=== PATIENT | male | born 1960 | race Caucasian/White ===

== ENCOUNTER 2018-02-25 19:57 | Emergency (ER) | payer MEDICAID ==
[~2018-02-25] VITALS: Ht 182.9 cm; Wt 68.0 kg
[~2018-02-25 19:57] MED LIST: DIPH25TA PO; LANTUS SQ
[2018-02-25] MEDS ORDERED: metoclopramide 5 mg/ml inj IV ONE (20:10)
[2018-02-25] MEDS ORDERED: diphenhydrAMINE 50 mg/ml inj IV ONE (20:10)
[2018-02-25] MEDS ORDERED: normal saline 1000ML IV soln IVB ONE (20:10)
[2018-02-25 20:23] LABS: BASOPHILS % (AUTO) 0.3 % (0-1); EOSINOPHILS # (AUTO) 0.1 X10'3 (0-0.9); EOSINOPHILS % (AUTO) 0.9 % (0-6); HEMATOCRIT 36.5 % (42.0-52.0); HEMOGLOBIN 12.4 g/dl (14.0-17.9); LYMPHOCYTES # (AUTO) 0.9 X10'3 (1.1-4.8); LYMPHOCYTES % (AUTO) 8.1 % (21-51); MEAN CORPUSCULAR HEMOGLOBIN 30.4 PG (27.0-31.0); MEAN CORPUSCULAR HGB CONC 34.1 % (33.0-36.5); MEAN PLATELET VOLUME 8.4 FL (7.4-10.4); MONOCYTES # (AUTO) 0.6 X10'3 (0-0.9); MONOCYTES % (AUTO) 5.8 % (2-12); NEUTROPHILS # (AUTO) 9.1 X10'3 (1.8-7.7); NEUTROPHILS % (AUTO) 84.9 % (42-75); PLATELET COUNT 167 X10'3 (140-440); RED CELL DISTRIBUTION WIDTH 13.1 % (11.5-14.5); WHITE BLOOD COUNT 10.7 X10'3 (4.5-11.0)
[2018-02-25 20:37] LABS: ALANINE AMINOTRANSFERASE 26 U/L (12-78); ALBUMIN 3.1 G/DL (3.4-5.0); ALKALINE PHOSPHATASE 54 IU/L (46-116); ANION GAP 18 (8-16); ASPARTATE AMINO TRANSFERASE 11 U/L (10-37); BILIRUBIN,TOTAL 1.3 MG/DL (0.1-1.0); BLOOD UREA NITROGEN 12 MG/DL (7-18); BUN/CREATININE RATIO 14.8 (5.4-32.0); CALCIUM 7.2 MG/DL (8.5-10.1); CHLORIDE 97 MMOL/L (99-107); CREATININE 0.81 MG/DL (0.60-1.10); GLUCOSE 208 MG/DL (70-104); LIPASE 75 U/L (73-393); POTASSIUM 3.6 MMOL/L (3.5-5.1); SODIUM 126 MMOL/L (135-145); TOTAL PROTEIN 6.2 G/DL (6.4-8.2); eGFR > 90 ML/MIN
[2018-02-25 20:39] LABS: TOTAL CARBON DIOXIDE 11.3 MMOL/L (24-32)
[2018-02-25] MEDS ORDERED: haloperidol lactate 5mg/ml inj IM ONE (21:50)
[2018-02-25] MEDS ORDERED: morphine 4 MG/ML inj SYRINge IV ONE (21:50)
[2018-02-25] MEDS ORDERED: METO-292 PO (22:49)
[2018-02-25 23:58] VITALS: BP 122/75
== END 2018-02-26 00:01 | disposition home or self-care (01) ==
LOC: ER 19:57
DX: E11.43 Type 2 diabetes mellitus with diabetic autonomic (poly)neuropathy (principal); K31.84 Gastroparesis; R11.2 Nausea with vomiting, unspecified; R10.84 Generalized abdominal pain; F12.90 Cannabis use, unspecified, uncomplicated; Z88.5 Allergy status to narcotic agent; Z79.4 Long term (current) use of insulin
CPT/HCPCS: 36415; 80053; 83690; 85025; 93005; 96361; 96372; 96374; 96375; 99285; J1200; J1630; J2270; J2765; J7030

== ENCOUNTER → 2018-05-09 | Day surgery (SDC) | payer MEDICAID ==
[~2018-05-09] MED LIST changes: +METO-292 PO
== END | disposition home or self-care (01) ==
LOC: RAD 09:15
PROVIDERS: ATTEND Nurse Practitioner Adult Health
DX: R11.0 Nausea (principal); R10.84 Generalized abdominal pain; R14.0 Abdominal distension (gaseous); E11.9 Type 2 diabetes mellitus without complications; F19.11 Other psychoactive substance abuse, in remission; Z87.09 Personal history of other diseases of the respiratory system; Z87.19 Personal history of other diseases of the digestive system; Z86.59 Personal history of other mental and behavioral disorders; Z79.4 Long term (current) use of insulin; Z79.899 Other long term (current) drug therapy; Z88.8 Allergy status to other drugs, medicaments and biological substances; Z82.3 Family history of stroke; Z82.49 Family history of ischemic heart disease and other diseases of the circulatory system; Z83.6 Family history of other diseases of the respiratory system; Z83.3 Family history of diabetes mellitus
CPT/HCPCS: 78264; 82948; A9541

== ENCOUNTER 2023-02-14 07:25 | Inpatient (IN) | payer MEDICAID ==
[2023-02-14] VITALS (17 sets, daily range): BP systolic 98–122; BP diastolic 42–58; PULSE 82–109; RESP 18–27; O2SAT 88–99
[~2023-02-14] VITALS: Ht 182.9 cm; Wt 75.7 kg
[2023-02-14] MEDS ORDERED: normal saline 1000ML IV soln IVB ONE ×2 (07:35→08:30)
[2023-02-14] MEDS ORDERED: ondansetron/PF 4mg/2ml inj IV ONE (07:35)
[2023-02-14] MEDS ORDERED: pantoprazole 40 MG vial IV ONE (07:35)
[2023-02-14] MEDS ORDERED: pantoprazole 40MG/NS 100ML BAG 100 ML IV ONE (07:40)
[2023-02-14] MEDS ORDERED: heparin, porcine-25,000 units/D5-250ml premix IV ONE (08:00)
[2023-02-14 08:03] LABS: EOSINOPHILS % (AUTO) 0 % (0-6); HEMATOCRIT 49.4 % (42.0-52.0); MEAN PLATELET VOLUME 7.8 FL (7.4-10.4); MONOCYTES # (AUTO) 1.8 X10'3 (0-0.9)
[2023-02-14 08:17] LABS: BASOPHILS % (AUTO) 0.2 % (0-1); HEMOGLOBIN 15.8 g/dl (14.0-17.9); LYMPHOCYTES # (AUTO) 0.5 X10'3 (1.1-4.8); LYMPHOCYTES % (AUTO) 2.3 % (21-51); MEAN CORPUSCULAR HEMOGLOBIN 29.9 PG (27.0-31.0); MEAN CORPUSCULAR VOLUME 93.5 FL (78-98); MONOCYTES % (AUTO) 7.9 % (2-12); NEUTROPHILS # (AUTO) 20.1 X10'3 (1.8-7.7); NEUTROPHILS % (AUTO) 89.6 % (42-75); PLATELET COUNT 303 X10'3 (140-440); RED BLOOD COUNT 5.28 X10'6 (4.70-6.10); RED CELL DISTRIBUTION WIDTH 13.8 % (11.5-14.5); WHITE BLOOD COUNT 22.4 X10'3 (4.5-11.0)
[2023-02-14 08:19] LABS: ABG BASE EXCESS -27.8 mmol/L (-2.0-2.0); ABG HCO3 3.2 mmol/L (22.0-26.0); ABG PCO2 (T) 15.4 mmHg (35.0-48.0); ABG PH (T) 6.935 (7.340-7.440); ALLEN'S TEST POSITIVE; TOTAL HEMOGLOBIN 15.5 G/dl (14.0-17.9)
[2023-02-14 08:20] LABS: ABG OXYGEN SATURATION 96.2 % (94-97); FCOHb 0.1 % (0.0-3.9); FHHb 3.8 % (0.0-5.0); FMetHb 0.3 % (0.0-1.5); FO2Hb 95.8 % (94-97)
[2023-02-14 08:34] LABS: LACTIC SEPSIS 4.7 MMOL/L (0.4-2.0)
[2023-02-14] MEDS ORDERED: morphine 4 MG/ML inj SYRINge IV PRN (08:40)
[2023-02-14] MEDS ORDERED: morphine 2 MG/ML inj. syringe IV PRN (08:40)
[2023-02-14] MEDS ORDERED: magnesium hydroxide 30ml (MOM) UD suspension PO PRN (08:40)
[2023-02-14] MEDS ORDERED: acetaminophen 325mg tablet PO PRN ×2 (08:40)
[2023-02-14] MEDS ORDERED: LidoCAINE 2% Topical Jelly 11mL syringe TOP ONE (08:40)
[2023-02-14] MEDS ORDERED: ondansetron/PF 4mg/2ml inj IV PRN (08:40)
[2023-02-14] MEDS ORDERED: ringers solution, lacted 1,000 ML IV ONE ×3 (08:45)
[2023-02-14] MEDS: Insulin Reg/NS 100units/100mL 100 ML IV PRN ×2 (08:47→19:22)
[2023-02-14] MEDS ORDERED: enoxaparin 30mg/0.3ml syringe SUBCUT ONE (08:50)
[2023-02-14 09:06] LABS: ALANINE AMINOTRANSFERASE 29 U/L (12-78); ALBUMIN 2.3 G/DL (3.4-5.0); ALBUMIN/GLOBULIN RATIO 0.5 (1.1-1.5); ALKALINE PHOSPHATASE 66 IU/L (46-116); ASPARTATE AMINO TRANSFERASE 30 U/L (10-37); BILIRUBIN,TOTAL 0.5 MG/DL (0.1-1.0); BLOOD UREA NITROGEN 30 MG/DL (7-18); BUN/CREATININE RATIO 15.5 (10.0-20.0); CALCIUM 8.8 MG/DL (8.5-10.1); CHLORIDE 89 MMOL/L (99-107); CREATININE 1.93 MG/DL (0.60-1.10); POTASSIUM 4.1 MMOL/L (3.5-5.1); SODIUM 124 MMOL/L (135-145); TOTAL PROTEIN 6.5 G/DL (6.4-8.2); eCRCL 38 ML/MIN; eGFR 35 ML/MIN
[2023-02-14 09:28] LABS: ANION GAP 30 (8-16); LIPASE 111 U/L (16-77)
[2023-02-14 09:30] LABS: GLUCOSE 618 MG/DL (70-104)
[2023-02-14 09:31] LABS: TOTAL CARBON DIOXIDE < 5 MMOL/L (24-32)
[2023-02-14 09:49] LABS: BILIRUBIN,URINE NEGATIVE (Neg); CLARITY,URINE SLIGHTLY CLOUDY (Clear); COLOR,URINE YELLOW (Yellow); GLUCOSE, URINE >=1000 mg/dl (Neg); KETONES,URINE >=80 mg/dl (Neg); LEUKOCYTE ESTERASE ,URINE NEGATIVE (Neg); NITRITES, URINE NEGATIVE (Neg); OCCULT BLOOD,URINE MODERATE (Neg); PH,URINE 5.5 (4.8-8.0); PROTEIN,URINE 30 mg/dl (Neg); UROBILINOGEN,URINE 0.2 E.U/dL (0.2-1.0)
[2023-02-14 09:54] LABS: UA COLLECTION TYPE STRAIGHT CATH
[2023-02-14 09:55] LABS: SQUAMOUS EPITHELIAL CELL,UR FEW /LPF (FEW)
[2023-02-14 09:56] LABS: MUCUS STRANDS FEW /LPF (Neg); TRANSITIONAL EPI CELLS,URINE FEW /HPF
[2023-02-14 09:57] LABS: RBC,URINE 0-2 /HPF (0-2); WBC,URINE 0-4 /HPF (0-4)
[2023-02-14 09:58] LABS: ACETONE LARGE (NEGATIVE)
[2023-02-14 09:59] LABS: AMORPHOUS URATES 1+; BACTERIA,URINE NONE SEEN /HPF (Neg)
[2023-02-14] MEDS ORDERED: sodium bicarbonate (8.4%) inj. 100 MEQ in dextrose 5% water 500ml 500 ML IV PRN (10:10)
[2023-02-14] MEDS ORDERED: sodium bicarbonate (8.4%) inj. 50 MEQ in dextrose 5% water 500ml 250 ML IV PRN (10:10)
[2023-02-14] MEDS: normal saline 1000ml 1,000 ML IV SCH ×4 (10:10→22:10)
[2023-02-14] MEDS ORDERED: magnesium 4gm in 100ml NS 100 ML IV PRN (10:20)
[2023-02-14] MEDS ORDERED: magnesium Cl slow-release 64mg tablet PO PRN (10:20)
[2023-02-14] MEDS ORDERED: magnesium 2GM in 50ml NS 50 ML IV PRN (10:20)
[2023-02-14] MEDS ORDERED: potassium Cl 20 mEq SR tablet PO PRN ×2 (10:20)
[2023-02-14] MEDS ORDERED: potassium Cl 40MEQ/1/2NS 520ml 520 ML IV PRN (10:20)
[2023-02-14 10:23] LABS: URINE AMPHETAMINE SCREEN NEGATIVE (Neg); URINE BARBITUATE SCREEN NEGATIVE (Neg); URINE BENZODIAZEPINES SCREEN NEGATIVE (Neg); URINE CANNABINOID SCREEN POSITIVE (Neg); URINE COCAINE SCREEN NEGATIVE (Neg); URINE OPIATE SCREEN NEGATIVE (Neg); URINE PHENCYCLIDINE SCREEN NEGATIVE (Neg)
[2023-02-14] MEDS ORDERED: potassium Cl 40MEQ/1/2NS 520ml 520 ML IV ONE (11:20)
[2023-02-14] MEDS ORDERED: KEN0.1O TOP (11:22)
[2023-02-14] MEDS ORDERED: CHOL100025 PO (11:22)
[2023-02-14] MEDS ORDERED: FLUT16SP26 BOTHNARES (11:22)
[2023-02-14] MEDS ORDERED: FEXO-236 PO (11:22)
[2023-02-14] MEDS: famotidine/PF 10 mg/ml inj IV SCH ×2 (11:25→20:16)
[2023-02-14] MEDS ORDERED: INSU100V9 SQ (11:28)
[2023-02-14] MEDS ORDERED: INSU100V49 SQ (11:29)
--- NOTE | 2023-02-14 13:13 | NUR ---
Initial: Pt presents with a BG of 618mg/dl on admit per EMR. Pt's family at bedside during time of visit, states pt's height is actually 6 ft noted discrepancy in EMR of 6ft vs 6'2. Pt currently receiving insulin drip and NPO. NO BM yet this admit. Pt may benefit from A1c lab this admit prior to providing diabetes nutrition education if appropriate. Will continue to monitor and make recommendations as appropriate. Recommendations: 1.Advance diet as medically appropriate to carbohydrate controlled 2.routine bowel care 3.scaled wt this admit; subsequent weekly scaled wts 4. obtain A1c lab if MD agreeable;monitor appropriateness for DM education prior to discharge Addendum: 02/14/23 at [address] Amended: Links added.
[2023-02-14 14:18] LABS: ALANINE AMINOTRANSFERASE 30 U/L (12-78); ALBUMIN 1.9 G/DL (3.4-5.0); ALBUMIN/GLOBULIN RATIO 0.5 (1.1-1.5); ALKALINE PHOSPHATASE 51 IU/L (46-116); ANION GAP 19 (8-16); ASPARTATE AMINO TRANSFERASE 38 U/L (10-37); BILIRUBIN,TOTAL 0.5 MG/DL (0.1-1.0); BLOOD UREA NITROGEN 26 MG/DL (7-18); BUN/CREATININE RATIO 17.9 (10.0-20.0); CALCIUM 7.9 MG/DL (8.5-10.1); CHLORIDE 102 MMOL/L (99-107); CREATININE 1.45 MG/DL (0.60-1.10); GLUCOSE 284 MG/DL (70-104); POTASSIUM 3.3 MMOL/L (3.5-5.1); SODIUM 132 MMOL/L (135-145); TOTAL PROTEIN 5.4 G/DL (6.4-8.2); eCRCL 51 ML/MIN; eGFR 49 ML/MIN
[2023-02-14 14:25] LABS: PHOSPHORUS 0.7 MG/DL (2.3-4.5); TOTAL CARBON DIOXIDE 10.8 MMOL/L (24-32)
[2023-02-14] MEDS ORDERED: Neutra Phos packet PO PRN (14:45)
[2023-02-14] MEDS ORDERED: sodium phosphate inj. 15 MMOL in dextrose 5%-water 250 ML IV PRN (14:45)
[2023-02-14] MEDS: potassium CL 20mEq in D5-1/2NS 1,000 ML IV PRN (15:08)
[2023-02-14] MEDS: sodium phosphate inj. 30 MMOL in dextrose 5%-water 250 ML IV PRN (15:08)
--- NOTE | 2023-02-14 18:29 | NUR ---
Problems reprioritized. Patient report given, questions answered & plan of care reviewed with JD Stallings.
[2023-02-14] MEDS: K and/or MAG REPLACEMENT MC SCH (20:00)
[2023-02-14] MEDS ORDERED: famotidine/PF 10 mg/ml inj IV ONE (20:00)
[2023-02-14 20:23] LABS: ALBUMIN 1.7 G/DL (3.4-5.0); ANION GAP 14 (8-16); BLOOD UREA NITROGEN 24 MG/DL (7-18); BUN/CREATININE RATIO 15.3 (10.0-20.0); CALCIUM 7.8 MG/DL (8.5-10.1); CHLORIDE 105 MMOL/L (99-107); CREATININE 1.57 MG/DL (0.60-1.10); GLUCOSE 223 MG/DL (70-104); SODIUM 133 MMOL/L (135-145); eCRCL 47 ML/MIN; eGFR 45 ML/MIN
[2023-02-14 20:28] LABS: POTASSIUM 2.6 MMOL/L (3.5-5.1); TOTAL CARBON DIOXIDE 13.7 MMOL/L (24-32)
[2023-02-14] MEDS: potassium Cl 40MEQ/1/2NS 520ml 520 ML IV PRN (21:01)
[2023-02-15] VITALS (27 sets, daily range): BP systolic 106–140; BP diastolic 42–68; PULSE 107–123; RESP 16–32; O2SAT 87–95
[2023-02-15] MEDS: normal saline 1000ml 1,000 ML IV SCH (02:10)
[2023-02-15 03:08] LABS: ALBUMIN 1.7 G/DL (3.4-5.0); ANION GAP 11 (8-16); BLOOD UREA NITROGEN 20 MG/DL (7-18); BUN/CREATININE RATIO 13.6 (10.0-20.0); CALCIUM 7.9 MG/DL (8.5-10.1); CHLORIDE 109 MMOL/L (99-107); CREATININE 1.47 MG/DL (0.60-1.10); GLUCOSE 129 MG/DL (70-104); MAGNESIUM 1.6 MG/DL (1.5-2.4); SODIUM 136 MMOL/L (135-145); TOTAL CARBON DIOXIDE 15.9 MMOL/L (24-32); eCRCL 50 ML/MIN; eGFR 48 ML/MIN
[2023-02-15 03:17] LABS: POTASSIUM 2.9 MMOL/L (3.5-5.1)
[2023-02-15 03:18] LABS: PHOSPHORUS 0.4 MG/DL (2.3-4.5)
[2023-02-15 03:35] LABS: BASOPHILS % (AUTO) 0.1 % (0-1); EOSINOPHILS % (AUTO) 0 % (0-6); HEMATOCRIT 33.9 % (42.0-52.0); HEMOGLOBIN 11.8 g/dl (14.0-17.9); LYMPHOCYTES # (AUTO) 0.2 X10'3 (1.1-4.8); LYMPHOCYTES % (AUTO) 1.5 % (21-51); MEAN CORPUSCULAR HEMOGLOBIN 29.9 PG (27.0-31.0); MEAN CORPUSCULAR HGB CONC 34.7 g/dL (33.0-36.5); MEAN CORPUSCULAR VOLUME 86.1 FL (78-98); MEAN PLATELET VOLUME 7.4 FL (7.4-10.4); MONOCYTES # (AUTO) 0.6 X10'3 (0-0.9); MONOCYTES % (AUTO) 3.9 % (2-12); NEUTROPHILS # (AUTO) 14.2 X10'3 (1.8-7.7); NEUTROPHILS % (AUTO) 94.5 % (42-75); PLATELET COUNT 187 X10'3 (140-440); RED BLOOD COUNT 3.94 X10'6 (4.70-6.10); RED CELL DISTRIBUTION WIDTH 12.8 % (11.5-14.5)
[2023-02-15] MEDS ORDERED: sodium phosphate inj. 30 MMOL in normal saline 250ml IV soln 250 ML IV ONE (04:00)
[2023-02-15 04:34] LABS: TOTAL CELLS COUNTED 100
[2023-02-15 04:35] LABS: ANISOCYTOSIS 1+; BURR CELLS 2+; ELLIPTOCYTES FEW; PLATELET ESTIMATE NORMAL
[2023-02-15 04:37] LABS: TEAR DROP CELLS FEW
[2023-02-15] MEDS: potassium CL 20mEq in D5-1/2NS 1,000 ML IV PRN ×4 (04:54→19:32)
[2023-02-15] MEDS: Insulin Reg/NS 100units/100mL 100 ML IV PRN (06:07)
[2023-02-15] MEDS ORDERED: ringers solution, lacted 1,000 ML IV ONE ×2 (07:40)
[2023-02-15] MEDS: K and/or MAG REPLACEMENT MC SCH ×2 (08:00→20:00)
[2023-02-15] MEDS: famotidine/PF 10 mg/ml inj IV SCH ×2 (09:32→21:23)
[2023-02-15 10:29] LABS: ALBUMIN 1.8 G/DL (3.4-5.0); ANION GAP 13 (8-16); BLOOD UREA NITROGEN 17 MG/DL (7-18); BUN/CREATININE RATIO 11.3 (10.0-20.0); CHLORIDE 109 MMOL/L (99-107); CREATININE 1.51 MG/DL (0.60-1.10); GLUCOSE 164 MG/DL (70-104); SODIUM 135 MMOL/L (135-145); eCRCL 49 ML/MIN; eGFR 47 ML/MIN
[2023-02-15 10:37] LABS: POTASSIUM 2.9 MMOL/L (3.5-5.1); TOTAL CARBON DIOXIDE 13.1 MMOL/L (24-32)
--- NOTE | 2023-02-15 10:45 | NUR ---
low MD patricia aware. cxray ordered. also notified of critical lab values. K = 2.9 and ECO2 = 13.1. Notified Dr. Finney.
--- NOTE | 2023-02-15 11:32 | NUR ---
F/u: D/w physician recommendation for an A1c, physician approved, lab pending at this time. Per RN pt is very altered and not following commands. RN states she received in report that patient's usually helps patient with diabetes management however she has been unable to help recently d/t the family getting sick. Will continue to follow. Addendum: 02/15/23 at [address] Amended: Links added.
[2023-02-15] MEDS ORDERED: levoFLOXACIN 500mg tablet PO SCH (11:39)
[2023-02-15] MEDS ORDERED: potassium Cl 20mEq/100mL bag 100 ML IV PRN (11:50)
[2023-02-15] MEDS ORDERED: heparin, porcine 5000 units/ml vial SQ SCH (12:20)
[2023-02-15] MEDS: potassium Cl 40MEQ/1/2NS 520ml 520 ML IV PRN ×2 (12:48→17:07)
[2023-02-15 12:56] LABS: HEMOGLOBIN A1C 8.1 % (4.5-6.2)
--- NOTE | 2023-02-15 14:35 | NUR ---
COVID positive. will call MD to notify
[2023-02-15] MEDS ORDERED: furosemide 40mg/4ml inj IV ONE (14:50)
--- NOTE | 2023-02-15 14:54 | NUR ---
notified MD of covid positive results, decreased O2 sats, inability to swallow and tachycardia. new orders obtained. will move patient to isolation room.
[2023-02-15] MEDS: levoFLOXACIN-Levaquin 500mg/D5 100 ML IV SCH (15:37)
--- NOTE | 2023-02-15 15:47 | NUR ---
Patient has sats 87-90%. will talk with MD regarding this. Levaquin and Lasix given without scanning as I was in covid isolation room and the [employer] computer is not working. double checked meds with 2nd RN.
[2023-02-15] MEDS: enoxaparin 40mg/0.4ml syringe SUBCUT SCH (21:23)
[2023-02-15] MEDS: methylPREDNISolone sod succ/PF 40mg inj. IV SCH (21:23)
[2023-02-16] VITALS (27 sets, daily range): BP systolic 78–141; BP diastolic 45–74; PULSE 77–129; RESP 15–27; TEMP 98.5–98.6; O2SAT 87–97
[2023-02-16] MEDS: potassium CL 20mEq in D5-1/2NS 1,000 ML IV PRN (00:20)
[2023-02-16] MEDS ORDERED: dexmedetomidin/NS 400mcg/100ml 100 ML IV SCH (02:20)
[2023-02-16] MEDS: methylPREDNISolone sod succ/PF 40mg inj. IV SCH ×4 (02:43→21:36)
--- NOTE | 2023-02-16 02:50 | NUR ---
over past hour pt has increased restlessness, constant coughing. called order received for Precedex
[2023-02-16 03:14] LABS: ABG BASE EXCESS -6.8 mmol/L (-2.0-2.0); ABG HCO3 15.6 mmol/L (22.0-26.0); ABG OXYGEN SATURATION 88.6 % (94-97); ABG PH (T) 7.432 (7.340-7.440); ABG PO2 (T) 47.1 mmHg (75.0-100.0); ALLEN'S TEST POSITIVE; FCOHb 0.7 % (0.0-3.9); FHHb 11.3 % (0.0-5.0); FLOW 8 L/min; FMetHb 0.3 % (0.0-1.5); FO2Hb 87.7 % (94-97); MODE HIGH FLOW; PATIENT TEMPERATURE 37.1; TOTAL HEMOGLOBIN 13.1 G/dl (14.0-17.9)
--- NOTE | 2023-02-16 06:17 | NUR ---
Patient in room ICU 2046. I have received report from JD Garza and had the opportunity to ask questions and assume patient care.
[2023-02-16 06:35] LABS: BASOPHILS % (AUTO) 0 % (0-1); EOSINOPHILS # (AUTO) 0.1 X10'3 (0-0.9); EOSINOPHILS % (AUTO) 0.9 % (0-6); HEMATOCRIT 33.8 % (42.0-52.0); HEMOGLOBIN 12.1 g/dl (14.0-17.9); LYMPHOCYTES # (AUTO) 0.2 X10'3 (1.1-4.8); MEAN CORPUSCULAR HEMOGLOBIN 30.3 PG (27.0-31.0); MEAN CORPUSCULAR HGB CONC 35.7 g/dL (33.0-36.5); MEAN CORPUSCULAR VOLUME 84.9 FL (78-98); MEAN PLATELET VOLUME 8.8 FL (7.4-10.4); MONOCYTES # (AUTO) 0.1 X10'3 (0-0.9); MONOCYTES % (AUTO) 1.5 % (2-12); NEUTROPHILS # (AUTO) 8.8 X10'3 (1.8-7.7); NEUTROPHILS % (AUTO) 95.6 % (42-75); PLATELET COUNT 117 X10'3 (140-440); RED BLOOD COUNT 3.99 X10'6 (4.70-6.10); RED CELL DISTRIBUTION WIDTH 13.4 % (11.5-14.5); WHITE BLOOD COUNT 9.2 X10'3 (4.5-11.0)
[2023-02-16 07:00] LABS: ANISOCYTOSIS 1+; PLATELET ESTIMATE DECREASED; TOTAL CELLS COUNTED 100
[2023-02-16 07:01] LABS: BURR CELLS 1+
[2023-02-16 07:03] LABS: ALBUMIN 1.6 G/DL (3.4-5.0); ANION GAP 8 (8-16); BLOOD UREA NITROGEN 12 MG/DL (7-18); BUN/CREATININE RATIO 7.6 (10.0-20.0); CALCIUM 7.9 MG/DL (8.5-10.1); CHLORIDE 105 MMOL/L (99-107); CREATININE 1.57 MG/DL (0.60-1.10); GLUCOSE 125 MG/DL (70-104); MAGNESIUM 1.4 MG/DL (1.5-2.4); POTASSIUM 3.1 MMOL/L (3.5-5.1); SODIUM 132 MMOL/L (135-145); TOTAL CARBON DIOXIDE 19.5 MMOL/L (24-32); eCRCL 49 ML/MIN; eGFR 45 ML/MIN
[2023-02-16 07:13] LABS: PHOSPHORUS 0.9 MG/DL (2.3-4.5)
[2023-02-16] MEDS: K and/or MAG REPLACEMENT MC SCH ×2 (08:00→20:00)
[2023-02-16] MEDS: acetaminophen 1,000mg/100ml IV 100 ML IV SCH ×3 (08:00→20:00)
[2023-02-16] MEDS: levoFLOXACIN-Levaquin 500mg/D5 100 ML IV SCH (08:13)
[2023-02-16] MEDS: famotidine/PF 10 mg/ml inj IV SCH ×2 (08:13→21:36)
[2023-02-16] MEDS: enoxaparin 40mg/0.4ml syringe SUBCUT SCH ×2 (08:14→21:37)
[2023-02-16] MEDS: sodium phosphate inj. 30 MMOL in dextrose 5%-water 250 ML IV PRN (08:14)
[2023-02-16] MEDS: potassium Cl 40MEQ/1/2NS 520ml 520 ML IV PRN (08:15)
[2023-02-16 10:11] LABS: PRO BRAIN NATRIURETIC PEPTIDE 2621 PG/ML (0-125)
--- NOTE | 2023-02-16 10:45 | NUR ---
Insulin gtt DC'd
--- NOTE | 2023-02-16 12:19 | NUR ---
16F NG tube placed in left nare. Diet consult ordered to initiate tube feed D/T pt continuing to be unable to swallow.
[2023-02-16] MEDS ORDERED: MESSAGE TO PHARMACY PO ONE (12:25)
[2023-02-16] MEDS ORDERED: DEXTROSE 15 GM of carb/4 tabs (each vial/BOTTLE has 4 tablets) PO PRN ×2 (12:25)
[2023-02-16] MEDS ORDERED: insulin Lispro (HumaLOG) vial - multi-dose SQ SCH (12:25)
[2023-02-16] MEDS ORDERED: dextrose 50%-water 50ml dispensing syringe IV PRN ×2 (12:25)
[2023-02-16] MEDS ORDERED: glucagon, human recombinant 1mg kit SUBCUT PRN (12:25)
--- NOTE | 2023-02-16 13:03 | NUR ---
TF consult: Pt s/p BSS x 2 today with [facility] NPO. Per RN an NGT has already been placed, see TF recs below. Per EMR pt found to be COVID positive 02/15, estimated nutrient needs have been updated accordingly. Current A1c 8.1%, DM education deferred at this time. No documented BM since admit though pt has not received any nutrition. Will continue to follow closely and make recommendations as appropriate. Recommendations: 1. Continuous TF via NGT using Glucerna 1.2 with 70 mL/hr goal rate to provide 1680 mL total volume/day, 2016 kcal, 101 g protein, and 1352 mL water 2. No additional water flushes given hyponatremia; monitor serum Na 3. Prealbumin q Tuesday/ 4. Daily scaled weights 5. Routine bowel care 6. Advance to CHO controlled diet as appropriate per [facility]; continue TF via NGT until PO diet is advanced and pt with adequate PO intake 7. DM education as appropriate; A1c 8.1%, admit with DKA; per RN patient's SO assists with DM management Addendum: 02/16/23 at [address] Amended: Links added.
--- NOTE | 2023-02-16 13:10 | NUR ---
TF consult: Pt s/p BSS x 2 today with [facility] NPO. Per RN at [facility] patient's SO reports pt aspirates at home and has a h/o Harrison's esophagus. Per RN an NGT has already been placed, see TF recs below. Per EMR pt found to be COVID positive 02/15, estimated nutrient needs have been updated accordingly. Current A1c 8.1%, DM education deferred at this time. No documented BM since admit though pt has not received any nutrition. Will continue to follow closely and make recommendations as appropriate. Recommendations: 1. Continuous TF via NGT using Glucerna 1.2 with 70 mL/hr goal rate to provide 1680 mL total volume/day, 2016 kcal, 101 g protein, and 1352 mL water 2. No additional water flushes given hyponatremia; monitor serum Na 3. Prealbumin q Tuesday/ 4. Daily scaled weights 5. Routine bowel care 6. Advance to CHO controlled diet as appropriate per [facility]; continue TF via NGT until PO diet is advanced and pt with adequate PO intake 7. DM education as appropriate; A1c 8.1%, admit with DKA; per RN patient's SO assists with DM management Addendum: 02/16/23 at [address] Amended: Links added.
[2023-02-16] MEDS ORDERED: POTASSIUM BICARB 20meq eff tab 20 MEQ TABLET.EFF NG PRN ×2 (13:41)
[2023-02-16] MEDS ORDERED: acetaminophen 325mg/10.15ml oral unit dose solution NG PRN ×2 (13:41→13:42)
[2023-02-16] MEDS ORDERED: magnesium hydroxide 30ml (MOM) UD suspension NG PRN (13:42)
[2023-02-16] MEDS ORDERED: Neutra Phos packet NG PRN (13:42)
--- NOTE | 2023-02-16 14:51 | NUR ---
Glucerna TF started at 1445 at 30ml/hr, per dietitian recommendation
[2023-02-16] MEDS: normal saline 1000ml 1,000 ML IV SCH (15:51)
--- NOTE | 2023-02-16 17:32 | NUR ---
Problems reprioritized. Patient report given, questions answered & plan of care reviewed with JD Proctor.
--- NOTE | 2023-02-16 17:34 | NUR ---
Pt REAGAN Bui notified of transfer to room 4010
--- NOTE | 2023-02-16 18:30 | NUR ---
Patient in room ORTHO 4018. I have received report from JD Duval and had the opportunity to ask questions and assume patient care.
[2023-02-16] MEDS: insulin regular, human U-100 3ml vial - multi-dose SQ SCH (22:33)
[2023-02-16] MEDS: insulin glargine (Lantus) pen - multi-dose SQ SCH (22:35)
[2023-02-17] VITALS (15 sets, daily range): BP systolic 113–126; BP diastolic 60–72; PULSE 97–112; RESP 16–25; TEMP 97.8–98.6; O2SAT 91–96
[2023-02-17] MEDS: methylPREDNISolone sod succ/PF 40mg inj. IV SCH ×4 (01:57→19:20)
[2023-02-17] MEDS: acetaminophen 1,000mg/100ml IV 100 ML IV SCH (01:58)
[2023-02-17] MEDS: insulin regular, human U-100 3ml vial - multi-dose SQ SCH (02:13)
[2023-02-17] MEDS: normal saline 1000ml 1,000 ML IV SCH ×2 (05:05→18:30)
[2023-02-17 06:05] LABS: BASOPHILS % (AUTO) 0.3 % (0-1); EOSINOPHILS % (AUTO) 0 % (0-6); HEMATOCRIT 34.3 % (42.0-52.0); HEMOGLOBIN 11.8 g/dl (14.0-17.9); LYMPHOCYTES # (AUTO) 0.2 X10'3 (1.1-4.8); LYMPHOCYTES % (AUTO) 1.9 % (21-51); MEAN CORPUSCULAR HEMOGLOBIN 29.5 PG (27.0-31.0); MEAN CORPUSCULAR HGB CONC 34.5 g/dL (33.0-36.5); MEAN CORPUSCULAR VOLUME 85.6 FL (78-98); MEAN PLATELET VOLUME 8.4 FL (7.4-10.4); MONOCYTES # (AUTO) 0.4 X10'3 (0-0.9); MONOCYTES % (AUTO) 3.5 % (2-12); NEUTROPHILS # (AUTO) 11.2 X10'3 (1.8-7.7); NEUTROPHILS % (AUTO) 94.3 % (42-75); PLATELET COUNT 181 X10'3 (140-440); RED BLOOD COUNT 4.01 X10'6 (4.70-6.10); RED CELL DISTRIBUTION WIDTH 13.3 % (11.5-14.5); WHITE BLOOD COUNT 11.9 X10'3 (4.5-11.0)
[2023-02-17 06:31] LABS: ALBUMIN 1.5 G/DL (3.4-5.0); ANION GAP 10 (8-16); BLOOD UREA NITROGEN 31 MG/DL (7-18); BUN/CREATININE RATIO 17.3 (10.0-20.0); CHLORIDE 107 MMOL/L (99-107); CREATININE 1.79 MG/DL (0.60-1.10); GLUCOSE 277 MG/DL (70-104); MAGNESIUM 1.7 MG/DL (1.5-2.4); PHOSPHORUS 1.9 MG/DL (2.3-4.5); PREALBUMIN 4.5 MG/DL (19-36); SODIUM 137 MMOL/L (135-145); TOTAL CARBON DIOXIDE 20.3 MMOL/L (24-32); eCRCL 43 ML/MIN; eGFR 38 ML/MIN
--- NOTE | 2023-02-17 06:46 | NUR ---
Problems reprioritized. Patient report given, questions answered & plan of care reviewed with JD Zaidi.
[2023-02-17] MEDS: K and/or MAG REPLACEMENT MC SCH ×3 (08:00→20:00)
[2023-02-17] MEDS: levoFLOXACIN-Levaquin 250mg/D5 50 ML IV SCH (08:13)
[2023-02-17] MEDS: famotidine/PF 10 mg/ml inj IV SCH ×2 (08:14→21:40)
[2023-02-17] MEDS: enoxaparin 40mg/0.4ml syringe SUBCUT SCH ×2 (08:16→19:21)
--- NOTE | 2023-02-17 08:30 | NUR ---
spoke with resident that pt passed swallow study and can have a pureed nectar thick diet, he stated tube feeds can be stopped but we will not dc the NG yet until pt is tolerating PO intake.
--- NOTE | 2023-02-17 09:30 | NUR ---
let and know of pts abnormal labs. Addendum: 02/17/23 at 0933 by Dyan Stack RN at 0800 rehan gordillo know of pts abnormal labs.
--- NOTE | 2023-02-17 09:45 | NUR ---
per resident it is ok to do per protocol for the pts blood sugar since tube feeds have stopped right now. he will be putting orders in for phosphorus replacement.
[2023-02-17] MEDS: insulin Lispro (HumaLOG) vial - multi-dose SQ SCH ×3 (10:10→19:26)
[2023-02-17] MEDS: Neutra Phos packet PO SCH ×2 (13:02→21:40)
[2023-02-17] MEDS ORDERED: magnesium 4gm in 100ml NS 100 ML IV PRN (14:35)
[2023-02-17] MEDS ORDERED: potassium Cl 40MEQ/1/2NS 520ml 520 ML IV PRN (14:35)
[2023-02-17] MEDS ORDERED: potassium Cl 20 mEq SR tablet PO PRN ×2 (14:35)
[2023-02-17] MEDS ORDERED: magnesium 2GM in 50ml NS 50 ML IV PRN (14:35)
[2023-02-17] MEDS ORDERED: magnesium Cl slow-release 64mg tablet PO PRN (14:35)
[2023-02-17] MEDS: POTASSIUM BICARB 20meq eff tab 20 MEQ TABLET.EFF PO PRN ×2 (14:58→19:20)
[2023-02-17] MEDS ORDERED: POTASSIUM BICARB 20meq eff tab 20 MEQ TABLET.EFF PO PRN (16:00)
--- NOTE | 2023-02-17 18:30 | NUR ---
Patient in room ORTHO 4018. I have received report from JD Zaidi and had the opportunity to ask questions and assume patient care.
--- NOTE | 2023-02-17 18:37 | NUR ---
Problems reprioritized. Patient report given, questions answered & plan of care reviewed with moris barger.
[2023-02-17] MEDS: insulin glargine (Lantus) pen - multi-dose SQ SCH (21:43)
--- NOTE | 2023-02-17 22:30 | NUR ---
pt removed his NG tube that was not being used, yet wanted it to remain. pt has been on puree diet. tube feedings not being used as he passed the swallow study.
[2023-02-18] VITALS (7 sets, daily range): BP systolic 115–126; BP diastolic 63–74; PULSE 92–108; RESP 18–25; TEMP 97.6–98.3; O2SAT 90–96
[2023-02-18] MEDS: methylPREDNISolone sod succ/PF 40mg inj. IV SCH ×3 (02:25→14:00)
[2023-02-18] MEDS: normal saline 1000ml 1,000 ML IV SCH (02:27)
[2023-02-18 03:14] LABS: ALBUMIN 1.5 G/DL (3.4-5.0); ANION GAP 6 (8-16); BLOOD UREA NITROGEN 31 MG/DL (7-18); BUN/CREATININE RATIO 21.8 (10.0-20.0); CHLORIDE 107 MMOL/L (99-107); CREATININE 1.42 MG/DL (0.60-1.10); GLUCOSE 100 MG/DL (70-104); MAGNESIUM 1.9 MG/DL (1.5-2.4); PHOSPHORUS 1.7 MG/DL (2.3-4.5); POTASSIUM 3.5 MMOL/L (3.5-5.1); SODIUM 140 MMOL/L (135-145); TOTAL CARBON DIOXIDE 26.6 MMOL/L (24-32); eCRCL 56 ML/MIN; eGFR 50 ML/MIN
--- NOTE | 2023-02-18 06:10 | NUR ---
Patient in room ORTHO 4018. I have received report from Debbi and had the opportunity to ask questions and assume patient care.
--- NOTE | 2023-02-18 06:49 | NUR ---
Problems reprioritized. Patient report given, questions answered & plan of care reviewed with JD Petersen.
[2023-02-18] MEDS: enoxaparin 40mg/0.4ml syringe SUBCUT SCH (08:00)
[2023-02-18] MEDS: K and/or MAG REPLACEMENT MC SCH ×2 (08:00)
[2023-02-18] MEDS: famotidine/PF 10 mg/ml inj IV SCH (08:00)
[2023-02-18] MEDS: levoFLOXACIN-Levaquin 250mg/D5 50 ML IV SCH (09:04)
[2023-02-18] MEDS: Neutra Phos packet PO SCH ×2 (09:04→13:00)
[2023-02-18] MEDS: insulin Lispro (HumaLOG) vial - multi-dose SQ SCH ×2 (09:06→13:51)
--- NOTE | 2023-02-18 13:33 | NUR ---
Re 4018, Dimitri, he's 93% on 3.5 LNC, roach is out, he pulled the extended line and his PIV already Trinity
--- NOTE | 2023-02-18 14:12 | NUR ---
O2 Sat at rest on room air:_88__% If below 89%: Recovery O2 Sat at rest on _3.5__LPM:__93_%:___% via__nasal cannula___(mask/nasal cannula, etc..) No further documentation is necessary. If O2 Sat did not drop below 89% on room air,ambulate patient on room air. O2 Sat while ambulating on room air:___% Recovery O2 Sat while ambulating on ___LPM:___% No further documentation is necessary. If patient does not drop below 89% while ambulating, he/she does not qualify for home O2.
[2023-02-18] MEDS ORDERED: DEC4T PO ×2 (14:18→14:48)
[2023-02-18] MEDS ORDERED: APIX2.5T PO (14:19)
[2023-02-18] MEDS ORDERED: APIX5TAB3 PO (14:49)
[2023-02-18] MEDS ORDERED: LEVO-65 PO (15:38)
--- NOTE | 2023-02-18 17:44 | NUR ---
Reviewed discharge instructions with patient. Patient refuses to wear his oxygen but immediately before being wheeled downstairs, patient agreed to wear the 3L NC. Patient dressed himself, staff gathered his belongings and patient was assisted into a wheelchair. Home oxygen was delivered to the patient's room. Placed patient on oxygen, placed N-95 mask on patient, patient was wheeled downstairs to be driven home by his significant other.
== END 2023-02-18 17:40 | disposition home or self-care (01) | DRG 420 ==
LOC: ER 07:26 → ICU 2S 08:44 → ORTHO 4S 02-16 18:39
PROVIDERS: ADMIT Internal Medicine Critical Care Medicine; ATTEND Internal Medicine Critical Care Medicine
PROC: 5A0945A Assistance with Respiratory Ventilation, 24-96 Consecutive Hours, High Flow/Velocity Cannula (ICD-10-PCS; principal; 2023-02-15)
DX: E11.10 Type 2 diabetes mellitus with ketoacidosis without coma (principal); J12.82 Pneumonia due to coronavirus disease 2019; G93.41 Metabolic encephalopathy; N17.9 Acute kidney failure, unspecified; U07.1 COVID-19; I50.9 Heart failure, unspecified; N18.30 Chronic kidney disease, stage 3 unspecified; D64.9 Anemia, unspecified; E87.6 Hypokalemia; E83.39 Other disorders of phosphorus metabolism; Z79.4 Long term (current) use of insulin
CPT/HCPCS: 36410; 36415; 36600; 71045; 76937; 80048; 80053; 80305; 81001; 82009; 82140; 82800; 82803; 82948; 83036; 83605; 83690; 83735; 83880; 84100; 84132; 84134; 84484; 85007; 85018; 85025; 87040; 87081; 87811; 92508; 92616; 93312; 94664; 94668; 94760; 99285; A4615; A6213; A6258; C1751; C1758; C9113; G0378; J1644; J1650; J1815; J1940; J1956; J2270; J2405; J2920; J3480; J3490; J7030; J7040; J7050; J7060; J7120

== ENCOUNTER 2023-12-27 13:12 | Outpatient (CLI) | payer MEDICARE, MEDICAID ==
[~2023-12-27 13:12] MED LIST changes: +APIX5TAB3 PO; +CHOL100025 PO; +DEC4T PO; -DIPH25TA PO; +FEXO-236 PO; +FLUT16SP26 BOTHNARES; +INSU100V49 SQ; +INSU100V9 SQ; +KEN0.1O TOP; -LANTUS SQ; -METO-292 PO
== END 2023-12-27 23:59 | disposition home or self-care (01) ==
LOC: RAD 13:12
PROVIDERS: ATTEND Anesthesiology Pain Medicine
DX: J43.9 Emphysema, unspecified (principal); R91.1 Solitary pulmonary nodule; R07.81 Pleurodynia; M54.6 Pain in thoracic spine
CPT/HCPCS: 71250